=== PATIENT | male | born 1945 | race Two or more races ===

== ENCOUNTER 2022-05-09 15:57 | Outpatient (CLI) | payer OTHER | END 2022-05-09 15:59 | disposition home or self-care (01) | LOC: LAB 15:57 | PROVIDERS: ATTEND Radiology Diagnostic Radiology | DX: G31.84 Mild cognitive impairment of uncertain or unknown etiology (principal) ==

== ENCOUNTER → 2022-05-13 11:00 | Outpatient (CLI) | payer OTHER | END | disposition home or self-care (01) | LOC: MRI 11:00 | PROVIDERS: ATTEND Family Medicine | DX: G31.84 Mild cognitive impairment of uncertain or unknown etiology (principal) | CPT/HCPCS: 70553; Q9965; 70552 ==

== ENCOUNTER 2022-09-02 08:40 | Outpatient (CLI) | payer OTHER | END 2022-09-02 08:49 | disposition home or self-care (01) | LOC: MRI 08:40 | PROVIDERS: ATTEND Family Medicine | DX: M25.562 Pain in left knee (principal) | CPT/HCPCS: 73721 ==

== ENCOUNTER 2023-09-14 08:45 | Outpatient (CLI) | payer OTHER | END 2023-09-14 09:04 | disposition home or self-care (01) | LOC: SONOGRAMA 08:45 | PROVIDERS: ATTEND Family Medicine | DX: R31.9 Hematuria, unspecified (principal); Z87.442 Personal history of urinary calculi ==

== ENCOUNTER 2025-05-13 12:50 | Emergency (ER) | payer OTHER ==
[~2025-05-13] VITALS: Ht 177.8 cm; Wt 79.4 kg
[2025-05-13] MEDS ORDERED: AMLODIPINE-OLM1 EACH (13:38)
[2025-05-13] MEDS ORDERED: ATORVASTATIN CA10 MG PO (13:38)
[2025-05-13] MEDS ORDERED: COZAAR100 MG PO (13:38)
[2025-05-13] MEDS ORDERED: ADCIRCA20 MG (13:38)
[2025-05-13] MEDS ORDERED: TOPROL XL25 M1 (13:38)
[2025-05-13] MEDS ORDERED: TEMAZEPAM15 MG PO (13:39)
[2025-05-13] MEDS ORDERED: ORPHENADRINE CITRATE 30 MG/ML AMPUL IM STA (15:15)
[2025-05-13] MEDS ORDERED: KETOROLAC TROMETHAMINE 15 MG VIAL IM STA (15:16)
[2025-05-13] MEDS ORDERED: ORPHENADRINE CITRATE 30 MG/ML AMPUL ONE (15:39)
[2025-05-13] MEDS ORDERED: KETOROLAC TROMETHAMINE 30 MG VIAL ONE (15:39)
[2025-05-13 16:07] LABS: BASO % 0.8 % (0.1-1.2); EOS # 0.19 (0.04-0.54); EOS % 2.4 % (0.7-7.0); HEMATOCRIT 38.7 % (40.1-51.0); LYMPH % 24.4 % (19.3-53.1); MEAN CORPUSCULAR HEMOGLOBIN 27.6 pg (25.6-32.2); MONO # 0.84 (0.24-0.82); MONO % 10.8 % (4.7-12.5); NEUT # 4.75 (1.56-6.13); NEUT % 61.1 % (34.0-71.1); PLATELET COUNT 286 K/uL (163-369); RED BLOOD COUNT 4.71 M/uL (4.63-6.08); RED CELL DISTRIBUTION WIDTH 14.6 % (11.6-14.4)
[2025-05-13 16:32] LABS: ALBUMIN 4.1 gm/dL (3.4-5.0); BILIRUBIN TOTAL 0.71 mg/dL (0.3-1.2); CALCIUM 9.4 mg/dL (8.5-10.1); CREATININE SERUM 1.15 mg/dL (0.70-1.30); GFR 61.19; GLOBULINA 3.4 G/DL (2.4-3.5); POTASSIUM 3.75 mEq/L (3.5-5.1); TOTAL PROTEIN 7.5 gm/dL (6.4-8.2); URIC ACID 4.1 mg/dL (3.5-8.5)
[2025-05-13] MEDS ORDERED: DEXAMETHASONE SODIUM PHOSPHATE 4 MG/ML VIAL ONE (17:38)
[2025-05-13] MEDS ORDERED: DEXAMETHASONE SODIUM PHOSPHATE 4 MG/ML VIAL IM STA (17:39)
[2025-05-13] MEDS ORDERED: CELEBREX200MG PO (17:41)
== END 2025-05-13 17:50 | disposition home or self-care (01) ==
LOC: ER 12:50
PROVIDERS: General Practice
DX: R60.0 Localized edema (principal); I10 Essential (primary) hypertension; E78.49 Other hyperlipidemia; M85.862 Other specified disorders of bone density and structure, left lower leg
CPT/HCPCS: 36415; 73564; 96372; 99283; J1100; J1885; J2360

== ENCOUNTER 2025-05-15 12:48 | Outpatient (CLI) | payer OTHER | END 2025-05-15 12:54 | disposition home or self-care (01) | LOC: LAB 12:48 | PROVIDERS: ATTEND Physical Medicine & Rehabilitation | DX: M10.9 Gout, unspecified (principal) ==

== ENCOUNTER → 2025-05-15 | Outpatient (CLI) | payer OTHER ==
[~2025-05-15] MED LIST: ADCIRCA20 MG; AMLODIPINE-OLM1 EACH; ATORVASTATIN CA10 MG PO; CELEBREX200MG PO; COZAAR100 MG PO; TEMAZEPAM15 MG PO; TOPROL XL25 M1
== END | disposition home or self-care (01) ==
LOC: RAD 12:09
PROVIDERS: ATTEND Physical Medicine & Rehabilitation
DX: M25.562 Pain in left knee (principal)

== ENCOUNTER 2025-10-01 08:20 | Outpatient (CLI) | payer OTHER | END 2025-10-01 08:25 | disposition home or self-care (01) | LOC: SONOGRAMA 08:20 | PROVIDERS: ATTEND Family Medicine | DX: R31.9 Hematuria, unspecified (principal); R13.10 Dysphagia, unspecified ==